=== PATIENT | male | born 1980 | race Caucasian/White ===

== ENCOUNTER 2022-09-06 17:44 | Emergency (ER) | payer OTHER ==
[~2022-09-06] VITALS: Ht 165.1 cm; Wt 72.6 kg
--- NOTE | 2022-09-06 17:44 | NUR ---
RUSTY SANABRIA 861 FROM A CLINIC C/O ANXIETY, FEELING NAUSEOUS, AND DIZZY
[2022-09-06] MEDS ORDERED: LORAZEPAM 1 MG TABLET PO ONE (18:30)
[2022-09-06] MEDS ORDERED: LORAZEPAM 1 MG TABLET ONE (18:50)
[2022-09-06 21:02] VITALS: BP 116/78
== END 2022-09-06 21:04 | disposition home or self-care (01) ==
LOC: ER 17:47
DX: F41.9 Anxiety disorder, unspecified (principal); R42 Dizziness and giddiness; R11.0 Nausea
CPT/HCPCS: 82962-TC